=== PATIENT | male | born 1940 | race Caucasian/White ===

== ENCOUNTER 2024-08-20 20:25 | Emergency (ER) | payer BC ==
[~2024-08-20] VITALS: Ht 182.9 cm; Wt 127.0 kg
[2024-08-20 20:48] VITALS: BP_SYST 109; PULSE 81; RESP 19; TEMP 98.7; O2SAT 95
[2024-08-20 21:48] LABS: RED CELL DISTRIBUTION WIDTH 16.4 % (9.0-15.0)
[2024-08-20 21:54] LABS: HEMATOCRIT 40.2 % (36-54); HEMOGLOBIN 13.8 g/dL (14.0-18.0); MEAN CORPUSCULAR HEMOGLOBIN 32 pg (27-31); MEAN CORPUSCULAR HGB CONC 34 % (32-36); MEAN CORPUSCULAR VOLUME 93 fL (79.0-98.0); PLATELET COUNT (AUTO) 225 K/uL (130-430); RED BLOOD CELL COUNT(AUTO) 4.32 MIL/uL (4.2-6.2); WHITE BLOOD COUNT (AUTO) 7.6 K/uL (4.8-10.8)
[2024-08-20 22:01] LABS: ALBUMIN 3.4 g/dL (3.4-4.8); ANION GAP 6 (5-15); ASPARTATE AMINOTRANSFERASE 14 U/L (10-37); CALCIUM 9.2 mg/dL (8.4-11.0); CARBON DIOXIDE 29 mmol/L (23-29); CHLORIDE 101 mmol/L (98-107); CREATININE 1.81 mg/dL (0.55-1.30); GLUCOSE 119 mg/dL (74-106); POTASSIUM 3.9 mmol/L (3.5-5.1); SODIUM SERUM 136 mmol/L (136-145); TOTAL BILIRUBIN 1.1 mg/dL (0.0-1.0); TOTAL PROTEIN, SERUM 6.9 g/dL (6.4-8.3); UREA NITROGEN, BLOOD 27 mg/dL (8-21)
[2024-08-20 22:09] LABS: BAND % (MANUAL) 0 % (0-6); BASOPHILS % (MANUAL) 0 % (0-2); EOSINOPHILS % (MANUAL) 1 % (0-7); LYMPHOCYTES % (MANUAL) 18 % (20-46); MONOCYTES % (MANUAL) 8 % (0-11)
[2024-08-20 22:10] LABS: ANISOCYTOSIS 1+; PLATELET ESTIMATE ADEQUATE (ADEQUATE)
[2024-08-20 22:15] LABS: ALANINE AMINOTRANSFERASE 10 U/L (12-78)
[2024-08-20] MEDS: HYDROcodone/ACETAMIN 5-325 MG TAB (NORCO/ VICODIN) PO ONE (22:16)
[2024-08-21] MEDS ORDERED: CLIN-142 PO (01:36)
[2024-08-21] MEDS ORDERED: CEPH250C PO (01:36)
[2024-08-21 01:40] VITALS: BP_SYST 108; PULSE 75; RESP 20; TEMP 98.6; O2SAT 96
== END 2024-08-21 02:00 | disposition left against medical advice (07) ==
LOC: SED 20:25
DX: L03.115 Cellulitis of right lower limb (principal); L03.116 Cellulitis of left lower limb; I10 Essential (primary) hypertension; E03.9 Hypothyroidism, unspecified; Z79.2 Long term (current) use of antibiotics
CPT/HCPCS: 36415; 80053; 83605; 83880; 85007; 85027; 87040; 93970; 99284

== ENCOUNTER 2024-08-28 17:44 | Inpatient (IN) | payer BC ==
[~2024-08-28] VITALS: Ht 180.3 cm; Wt 113.4 kg
[~2024-08-28 17:44] MED LIST: CEPH250C PO; CLIN-142 PO
[2024-08-28 18:01] VITALS: BP_SYST 133; PULSE 66; RESP 16; TEMP 97.6; O2SAT 95
[2024-08-28] MEDS ORDERED: VANCOMYCIN HCL 1,500 MG in NS 250 ML IV SCH (18:45)
[2024-08-28] MEDS: VANCOMYCIN HCL 1,500 MG in NS 250 ML IV ONE (19:25)
[2024-08-28 19:53] LABS: BASOPHILS # (AUTO) 0.1 K/uL (0.0-0.2); BASOPHILS % (AUTO) 1.1 % (0.0-2.0); EOSINOPHILS # (AUTO) 0.3 K/uL (0.0-0.4); EOSINOPHILS % (AUTO) 5.7 % (0.0-4.0); HEMATOCRIT 37.7 % (36-54); LYMPHOCYTES # (AUTO) 0.8 K/uL (1.0-5.5); LYMPHOCYTES % (AUTO) 13.4 % (20.5-51.5); MEAN CORPUSCULAR HEMOGLOBIN 32 pg (27-31); MEAN CORPUSCULAR HGB CONC 35 % (32-36); MEAN CORPUSCULAR VOLUME 92 fL (79.0-98.0); MONOCYTES # (AUTO) 0.5 K/uL (0.0-1.0); MONOCYTES % (AUTO) 9.1 % (1.7-9.3); NEUTROPHILS # (AUTO) 4.1 K/uL (1.8-7.7); NEUTROPHILS % (AUTO) 70.7 % (40.0-70.0); PLATELET COUNT (AUTO) 220 K/uL (130-430); RED BLOOD CELL COUNT(AUTO) 4.09 MIL/uL (4.2-6.2); RED CELL DISTRIBUTION WIDTH 15.6 % (9.0-15.0); WHITE BLOOD COUNT (AUTO) 5.8 K/uL (4.8-10.8)
[2024-08-28 20:11] LABS: ANION GAP 7 (5-15); CALCIUM 8.6 mg/dL (8.4-11.0); CARBON DIOXIDE 31 mmol/L (23-29); CHLORIDE 103 mmol/L (98-107); CREATININE 1.19 mg/dL (0.55-1.30); GLUCOSE 86 mg/dL (74-106); POTASSIUM 3.6 mmol/L (3.5-5.1); SODIUM SERUM 141 mmol/L (136-145); UREA NITROGEN, BLOOD 14 mg/dL (8-21)
[2024-08-28] MEDS: FUROSEMIDE 40 MG/4 ML VIAL IVP ONE (21:21)
[2024-08-28] MEDS: MAGNESIUM SULFATE 50 ML IV ONE (22:26)
[2024-08-28] MEDS: hydrALAZINE HCL 20 MG/ML VIAL IVP ONE (23:56)
[2024-08-29] VITALS (8 sets, daily range): BP systolic 160–181; PULSE 56–89; RESP 16–20; TEMP 97.3–98.1; O2SAT 95–97
[2024-08-29] MEDS: KCL 40 mEq in 100 mL (PREMIX) 100 ML IV ONE (02:24)
[2024-08-29] MEDS: FUROSEMIDE 20 MG/2 ML VIAL IVP SCH (05:36)
[2024-08-29] MEDS: cloNIDine HCL 0.1 MG TABLET PO PRN (08:21)
[2024-08-29] MEDS: VANCOMYCIN HCL 1,500 MG in NS 250 ML IV SCH (11:46)
[2024-08-29] MEDS: CEFEPIME 0.5 GM in D5W 50 ML IV SCH (14:44)
[2024-08-30] VITALS (7 sets, daily range): BP systolic 105–176; PULSE 69–88; RESP 16–18; TEMP 97.3–98.5; O2SAT 95–98
[2024-08-30 04:00] LABS: BILIRUBIN,URINE NEGATIVE (NEGATIVE); BLOOD, URINE 1+ (NEGATIVE); COLOR,URINE YELLOW (YELLOW); GLUCOSE,URINE NEGATIVE (NEGATIVE); KETONES,URINE 1+ (NEGATIVE); LEUKOCYTE ESTERASE ,URINE NEGATIVE (NEGATIVE); NITRITE, URINE NEGATIVE (NEGATIVE); PROTEIN URINE NEGATIVE (NEGATIVE); UROBILINOGEN,URINE 0.2 (0.2-1.0)
[2024-08-30 04:22] LABS: CLARITY/URINE HAZY (CLEAR)
[2024-08-30 04:24] LABS: BACTERIA,URINE None Seen /HPF (None Seen); RBC,URINE 20-50 /HPF (0-3); WBC,URINE 0-3 /HPF (0-3)
[2024-08-30 08:06] LABS: BASOPHILS % (AUTO) 0.8 % (0.0-2.0); EOSINOPHILS # (AUTO) 0.1 K/uL (0.0-0.4); EOSINOPHILS % (AUTO) 1.6 % (0.0-4.0); HEMOGLOBIN 13.5 g/dL (14.0-18.0); LYMPHOCYTES # (AUTO) 1.1 K/uL (1.0-5.5); LYMPHOCYTES % (AUTO) 19.2 % (20.5-51.5); MEAN CORPUSCULAR HEMOGLOBIN 30 pg (27-31); MEAN CORPUSCULAR HGB CONC 33 % (32-36); MEAN CORPUSCULAR VOLUME 92 fL (79.0-98.0); MONOCYTES # (AUTO) 0.7 K/uL (0.0-1.0); MONOCYTES % (AUTO) 11.6 % (1.7-9.3); NEUTROPHILS # (AUTO) 3.8 K/uL (1.8-7.7); NEUTROPHILS % (AUTO) 66.8 % (40.0-70.0); PLATELET COUNT (AUTO) 227 K/uL (130-430); RED BLOOD CELL COUNT(AUTO) 4.47 MIL/uL (4.2-6.2); RED CELL DISTRIBUTION WIDTH 15.5 % (9.0-15.0); WHITE BLOOD COUNT (AUTO) 5.7 K/uL (4.8-10.8)
[2024-08-30 08:26] LABS: ANION GAP 8 (5-15); CALCIUM 8.8 mg/dL (8.4-11.0); CARBON DIOXIDE 32 mmol/L (23-29); CHLORIDE 100 mmol/L (98-107); CREATININE 1.33 mg/dL (0.55-1.30); GLUCOSE 98 mg/dL (74-106); POTASSIUM 3.3 mmol/L (3.5-5.1); SODIUM SERUM 140 mmol/L (136-145); UREA NITROGEN, BLOOD 12 mg/dL (8-21)
[2024-08-30] MEDS: LOSARTAN POTASSIUM 50 MG TABLET (COZAAR) PO SCH (10:49)
[2024-08-30] MEDS: hydrALAZINE HCL 25 MG TABLET PO ONE (11:07)
[2024-08-30] MEDS: METOPROLOL SUCCINATE 50 MG TAB.SR.24H (TOPROL XL) PO ONE (11:09)
[2024-08-30] MEDS: ACETAMINOPHEN 325 MG TABLET PO PRN (15:20)
[2024-08-30] MEDS: hydrALAZINE HCL 25 MG TABLET PO SCH (15:21)
[2024-08-30] MEDS ORDERED: NEU300 PO (17:35)
[2024-08-30] MEDS ORDERED: LEVO100T9 PO (17:35)
[2024-08-30] MEDS ORDERED: METO-442 PO (17:35)
[2024-08-30] MEDS ORDERED: CEL20 PO (17:35)
[2024-08-30] MEDS ORDERED: NAPR-688 PO (17:35)
[2024-08-31] VITALS (7 sets, daily range): BP systolic 131–156; PULSE 73–86; RESP 18–20; TEMP 97.5–98.4; O2SAT 94–97
[2024-08-31 06:13] LABS: ANION GAP 8 (5-15); CALCIUM 8.4 mg/dL (8.4-11.0); CARBON DIOXIDE 33 mmol/L (23-29); CHLORIDE 98 mmol/L (98-107); CREATININE 1.26 mg/dL (0.55-1.30); GLUCOSE 91 mg/dL (74-106); POTASSIUM 3.2 mmol/L (3.5-5.1); SODIUM SERUM 139 mmol/L (136-145); UREA NITROGEN, BLOOD 14 mg/dL (8-21)
[2024-08-31] MEDS: METOPROLOL SUCCINATE 50 MG TAB.SR.24H (TOPROL XL) PO SCH (09:54)
[2024-08-31] MEDS ORDERED: NALOXONE HCL 0.4 MG/ML AMP (NARCAN) IVP PRN (10:45)
[2024-08-31] MEDS: HYDROcodone/ACETAMIN 5-325 MG TAB (NORCO/ VICODIN) PO PRN (10:59)
[2024-08-31] MEDS ORDERED: cephALEXin 250 MG CAPSULE PO SCH (17:00)
[2024-09-01] MEDS ORDERED: LEVOTHYROXINE SODIUM 0.1 MG TABLET PO SCH (07:00)
[2024-09-01] MEDS ORDERED: METOPROLOL TARTRATE 50 MG TABLET PO SCH (09:00)
[2024-09-01] MEDS ORDERED: CITALOPRAM HYDROBROMIDE 20 MG TABLET PO SCH (09:00)
== END 2024-09-01 00:40 | DRG 603 ==
LOC: SED 17:44 → STU 21:29
PROVIDERS: ADMIT Specialist; ATTEND Specialist
DX: L03.116 Cellulitis of left lower limb (principal); I50.32 Chronic diastolic (congestive) heart failure; I11.0 Hypertensive heart disease with heart failure; M10.9 Gout, unspecified; E66.9 Obesity, unspecified; L03.115 Cellulitis of right lower limb; E03.9 Hypothyroidism, unspecified; B35.1 Tinea unguium; B96.4 Proteus (mirabilis) (morganii) as the cause of diseases classified elsewhere; Z79.2 Long term (current) use of antibiotics; Z79.899 Other long term (current) drug therapy; Z68.34 Body mass index [BMI] 34.0-34.9, adult
CPT/HCPCS: 36415; 71045; 73590; 80048; 81000; 81001; 81015; 83880; 84443; 85025; 87040; 87070; 87075; 87081; 87186; 93306; 97110-GP; 97116-GP; 97530-GP; 99285; G0378; J0360; J0692; J1940; J3370; J3475; J3480; J7050; J7060